=== PATIENT | female | born 1970 | race Caucasian/White ===

== ENCOUNTER 2023-06-04 20:38 | Outpatient (CLI) | payer BC, SELFPAY | END 2023-06-04 23:59 | LOC: LAB.DROPOF 20:38 | PROVIDERS: PCP Student in an Organized Health Care Education/Training Program; Visit Provider Student in an Organized Health Care Education/Training Program | DX: J02.9 Acute pharyngitis, unspecified (principal); R05.9 Cough, unspecified; R09.81 Nasal congestion | CPT/HCPCS: 87070 ==